=== PATIENT | female | born 1985 | race Caucasian/White ===

== ENCOUNTER 2019-02-06 07:07 | Emergency (ER) | payer OTHER, MEDICAID ==
[~2019-02-06] VITALS: Ht 167.6 cm; Wt 56.8 kg
[2019-02-06 07:20] VITALS: BP 115/81
[2019-02-06] MEDS ORDERED: triamcinolone acetonide 40mg/ml inj IM ONE (08:10)
--- NOTE | 2019-02-06 09:21 | NUR ---
Given im Kenalog; states feels improved with redness and itching decreasing.
== END 2019-02-06 09:25 | disposition home or self-care (01) ==
LOC: ER 07:08
DX: L23.7 Allergic contact dermatitis due to plants, except food (principal)
CPT/HCPCS: 96372; 99283; J3301

== ENCOUNTER 2019-07-19 09:43 | Outpatient (CLI) | payer OTHER, MEDICAID ==
[2019-07-19 10:07] LABS: CLARITY,URINE CLEAR (Clear); COLOR,URINE YELLOW (Yellow); GLUCOSE, URINE NEGATIVE (Neg); KETONES,URINE NEGATIVE (Neg); LEUKOCYTE ESTERASE ,URINE NEGATIVE (Neg); NITRITES, URINE NEGATIVE (Neg); OCCULT BLOOD,URINE NEGATIVE (Neg); PH,URINE 5.5 (4.8-8.0); PROTEIN,URINE NEGATIVE (Neg); UROBILINOGEN,URINE 0.2 E.U/dL (0.2-1.0)
[2019-07-19 10:12] LABS: BASOPHILS # (AUTO) 0.1 X10'3 (0-0.2); BASOPHILS % (AUTO) 1.1 % (0-1); EOSINOPHILS # (AUTO) 0.2 X10'3 (0-0.9); EOSINOPHILS % (AUTO) 2.9 % (0-6); HEMATOCRIT 42.1 % (35.0-45.0); HEMOGLOBIN 14.2 g/dl (12.0-16.0); LYMPHOCYTES # (AUTO) 1.8 X10'3 (1.1-4.8); LYMPHOCYTES % (AUTO) 29.3 % (21-51); MEAN CORPUSCULAR HEMOGLOBIN 30.2 PG (27.0-31.0); MEAN CORPUSCULAR HGB CONC 33.7 g/dL (33.0-36.5); MEAN CORPUSCULAR VOLUME 89.8 FL (78-98); MEAN PLATELET VOLUME 7.3 FL (7.4-10.4); MONOCYTES # (AUTO) 0.4 X10'3 (0-0.9); MONOCYTES % (AUTO) 7.3 % (2-12); NEUTROPHILS # (AUTO) 3.6 X10'3 (1.8-7.7); NEUTROPHILS % (AUTO) 59.4 % (42-75); PLATELET COUNT 316 X10'3 (140-440); RED BLOOD COUNT 4.69 X10'6 (4.20-5.60)
[2019-07-19 10:13] LABS: UA COLLECTION TYPE VOIDED
[2019-07-19 10:31] LABS: ALANINE AMINOTRANSFERASE 20 U/L (12-78); ALBUMIN 4.1 G/DL (3.4-5.0); ALBUMIN/GLOBULIN RATIO 1.3 (1.1-1.5); ALKALINE PHOSPHATASE 37 IU/L (46-116); ANION GAP 9 (8-16); ASPARTATE AMINO TRANSFERASE 9 U/L (10-37); BILIRUBIN,TOTAL 0.5 MG/DL (0.1-1.0); BLOOD UREA NITROGEN 11 MG/DL (7-18); BUN/CREATININE RATIO 10.5 (6.6-38.0); CALCIUM 8.7 MG/DL (8.5-10.1); CHLORIDE 109 MMOL/L (99-107); CHOL/HDL RATIO 2.1 (0.00-4.99); CHOLESTEROL 152 MG/DL (0-200); CREATININE 1.05 MG/DL (0.40-0.90); GLUCOSE 89 MG/DL (70-104); HDL CHOLESTEROL 74 MG/DL (35-60); LDL CHOLESTEROL 62 MG/DL (50-100); POTASSIUM 3.8 MMOL/L (3.5-5.1); SODIUM 142 MMOL/L (135-145); TOTAL CARBON DIOXIDE 23.9 MMOL/L (24-32); TOTAL PROTEIN 7.3 G/DL (6.4-8.2); TRIGLYCERIDES 85 MG/DL (20-135); eGFR 59 ML/MIN
== END 2019-07-19 23:59 | disposition home or self-care (01) ==
LOC: LAB 09:43
PROVIDERS: ATTEND Family Medicine
DX: G43.909 Migraine, unspecified, not intractable, without status migrainosus (principal); Z87.891 Personal history of nicotine dependence
CPT/HCPCS: 36415; 80053; 80061; 81003; 84439; 84443; 85025

== ENCOUNTER 2019-07-22 09:22 | Outpatient (CLI) | payer OTHER, MEDICAID | END 2019-07-22 23:59 | disposition home or self-care (01) | LOC: RAD 09:22 | PROVIDERS: ATTEND Family Medicine | DX: G43.909 Migraine, unspecified, not intractable, without status migrainosus (principal); Z87.891 Personal history of nicotine dependence | CPT/HCPCS: 70544; 70551 ==

== ENCOUNTER → 2019-10-03 | Emergency (ER) | payer MEDICAID, OTHER ==
[~2019-10-03] VITALS: Ht 167.6 cm; Wt 59.1 kg
[~2019-10-03] MED LIST: TRIA15CR61 TOP
[2019-10-03 06:47] VITALS: BP 119/85
== END | disposition home or self-care (01) ==
LOC: ER 06:45
DX: L23.7 Allergic contact dermatitis due to plants, except food (principal)
CPT/HCPCS: 99283

== ENCOUNTER 2020-09-23 07:25 | Outpatient (CLI) | payer BC ==
[2020-09-23 07:51] LABS: CLARITY,URINE CLEAR (Clear); COLOR,URINE YELLOW (Yellow); GLUCOSE, URINE NEGATIVE (Neg); KETONES,URINE TRACE mg/dl (Neg); LEUKOCYTE ESTERASE ,URINE NEGATIVE (Neg); NITRITES, URINE NEGATIVE (Neg); OCCULT BLOOD,URINE NEGATIVE (Neg); PROTEIN,URINE NEGATIVE (Neg); UROBILINOGEN,URINE 0.2 E.U/dL (0.2-1.0)
[2020-09-23 07:57] LABS: UA COLLECTION TYPE CLN CATCH MIDSTREAM
[2020-09-23 07:59] LABS: BASOPHILS % (AUTO) 0.3 % (0-1); EOSINOPHILS # (AUTO) 0.1 X10'3 (0-0.9); EOSINOPHILS % (AUTO) 1.1 % (0-6); HEMATOCRIT 42.2 % (35.0-45.0); HEMOGLOBIN 14.4 g/dl (12.0-16.0); LYMPHOCYTES # (AUTO) 1.7 X10'3 (1.1-4.8); MEAN CORPUSCULAR HEMOGLOBIN 30.7 PG (27.0-31.0); MEAN CORPUSCULAR HGB CONC 34.1 g/dL (33.0-36.5); MEAN CORPUSCULAR VOLUME 89.9 FL (78-98); MEAN PLATELET VOLUME 7.2 FL (7.4-10.4); MONOCYTES # (AUTO) 0.5 X10'3 (0-0.9); NEUTROPHILS # (AUTO) 5.6 X10'3 (1.8-7.7); NEUTROPHILS % (AUTO) 71.6 % (42-75); PLATELET COUNT 301 X10'3 (140-440); RED BLOOD COUNT 4.69 X10'6 (4.20-5.60); RED CELL DISTRIBUTION WIDTH 12.9 % (11.5-14.5); WHITE BLOOD COUNT 7.9 X10'3 (4.5-11.0)
[2020-09-23 10:45] LABS: ALANINE AMINOTRANSFERASE 26 U/L (12-78); ALBUMIN 3.9 G/DL (3.4-5.0); ALBUMIN/GLOBULIN RATIO 1.1 (1.1-1.5); ALKALINE PHOSPHATASE 36 IU/L (46-116); ASPARTATE AMINO TRANSFERASE 14 U/L (10-37); BILIRUBIN,TOTAL 0.5 MG/DL (0.1-1.0); BLOOD UREA NITROGEN 15 MG/DL (7-18); BUN/CREATININE RATIO 16.7 (6.6-38.0); CALCIUM 8.6 MG/DL (8.5-10.1); CHOL/HDL RATIO 1.9 (0.00-4.99); CHOLESTEROL 154 MG/DL (0-200); GLUCOSE 73 MG/DL (70-104); HDL CHOLESTEROL 79 MG/DL (35-60); LDL CHOLESTEROL 58 MG/DL (50-100); TOTAL CARBON DIOXIDE 25.9 MMOL/L (24-32); TOTAL PROTEIN 7.3 G/DL (6.4-8.2); TRIGLYCERIDES 142 MG/DL (20-135); eGFR 70 ML/MIN
[2020-09-23 11:22] LABS: CHLORIDE 104 MMOL/L (99-107); POTASSIUM 3.7 MMOL/L (3.5-5.1)
[2020-09-23 11:23] LABS: ANION GAP 8 (8-16); SODIUM 138 MMOL/L (135-145)
== END 2020-09-23 23:59 | disposition home or self-care (01) ==
LOC: LAB 07:25
PROVIDERS: ATTEND Family Medicine
DX: Z00.00 Encounter for general adult medical examination without abnormal findings (principal)
CPT/HCPCS: 36415; 80053; 80061; 81003; 84439; 84443; 85025

== ENCOUNTER 2020-10-03 14:28 | Outpatient (CLI) | payer BC | END 2020-10-03 23:59 | disposition home or self-care (01) | LOC: LAB 14:28 → EEVIPCON 14:28 → LAB 23:59 | PROVIDERS: ATTEND Family Medicine | DX: G47.00 Insomnia, unspecified (principal); R53.83 Other fatigue; R11.0 Nausea | CPT/HCPCS: 36415; 82306 ==

== ENCOUNTER 2021-12-10 14:11 | Outpatient (CLI) | payer BC | END 2021-12-10 23:59 | disposition home or self-care (01) | LOC: RAD 14:11 | PROVIDERS: ATTEND Family Medicine | DX: S99.922A Unspecified injury of left foot, initial encounter (principal); M79.672 Pain in left foot; X58.XXXA Exposure to other specified factors, initial encounter; Y93.89 Activity, other specified; Y92.89 Other specified places as the place of occurrence of the external cause; Y99.8 Other external cause status | CPT/HCPCS: 73610; 73630 ==

== ENCOUNTER 2023-03-25 14:39 | Outpatient (CLI) | payer BC ==
[2023-03-25 15:07] LABS: BASOPHILS % (AUTO) 0.6 % (0-1); EOSINOPHILS # (AUTO) 0.2 X10'3 (0-0.9); EOSINOPHILS % (AUTO) 2.6 % (0-6); HEMATOCRIT 42.4 % (35.0-45.0); HEMOGLOBIN 14.2 g/dl (12.0-16.0); LYMPHOCYTES # (AUTO) 2.6 X10'3 (1.1-4.8); LYMPHOCYTES % (AUTO) 35.2 % (21-51); MEAN CORPUSCULAR HEMOGLOBIN 29.5 PG (27.0-31.0); MEAN CORPUSCULAR HGB CONC 33.5 g/dL (33.0-36.5); MEAN PLATELET VOLUME 7.4 FL (7.4-10.4); MONOCYTES # (AUTO) 0.5 X10'3 (0-0.9); MONOCYTES % (AUTO) 6.3 % (2-12); NEUTROPHILS # (AUTO) 4.1 X10'3 (1.8-7.7); NEUTROPHILS % (AUTO) 55.3 % (42-75); PLATELET COUNT 344 X10'3 (140-440); RED BLOOD COUNT 4.81 X10'6 (4.20-5.60); WHITE BLOOD COUNT 7.4 X10'3 (4.5-11.0)
[2023-03-25 15:35] LABS: ALANINE AMINOTRANSFERASE 15 U/L (12-78); ALBUMIN 3.9 G/DL (3.4-5.0); ALBUMIN/GLOBULIN RATIO 1.1 (1.1-1.5); ALKALINE PHOSPHATASE 45 IU/L (46-116); ANION GAP 9 (8-16); ASPARTATE AMINO TRANSFERASE 11 U/L (10-37); BILIRUBIN,TOTAL 0.2 MG/DL (0.1-1.0); BLOOD UREA NITROGEN 21 MG/DL (7-18); BUN/CREATININE RATIO 26.6 (10.0-20.0); CHLORIDE 105 MMOL/L (99-107); CHOL/HDL RATIO 2.4 (0.00-4.99); CHOLESTEROL 168 MG/DL (0-200); CREATININE 0.79 MG/DL (0.40-0.90); GLUCOSE 98 MG/DL (70-104); HDL CHOLESTEROL 71 MG/DL (35-60); LDL CHOLESTEROL 65 MG/DL (50-100); POTASSIUM 3.5 MMOL/L (3.5-5.1); SODIUM 140 MMOL/L (135-145); TOTAL PROTEIN 7.4 G/DL (6.4-8.2); TRIGLYCERIDES 87 MG/DL (20-135); eGFR 81 ML/MIN
== END 2023-03-25 23:59 | disposition home or self-care (01) ==
LOC: LAB 14:39
PROVIDERS: ATTEND Physician Assistant
DX: G47.00 Insomnia, unspecified (principal); G43.909 Migraine, unspecified, not intractable, without status migrainosus; R53.83 Other fatigue; Z01.01 Encounter for examination of eyes and vision with abnormal findings
CPT/HCPCS: 36415; 80053; 80061; 84436; 84443; 85025

== ENCOUNTER 2025-04-20 17:40 | Emergency (ER) | payer BC ==
[~2025-04-20] VITALS: Ht 165.1 cm; Wt 67.2 kg
[2025-04-20 17:42] VITALS: BP 151/91; PULSE 96; TEMP 98; O2SAT 98
[2025-04-20] MEDS ORDERED: LIDOcaine 1% W/epiNEPHrine 1:100,000 20ml vial SQ ONE (17:50)
[2025-04-20] MEDS ORDERED: methylPREDNISolone acetate 80mg/ml inj**IM only IM ONE (17:50)
--- NOTE | 2025-04-20 18:13 | RADIOLOGY REPORT ---
EXAM: DI WRIST, COMPLETE (3VW MIN) INDICATION: pain TECHNIQUE: 3 views of the right left wrist COMPARISON: FOOT, COMPLETE (3VW MIN) on DOS: 12/10/21 FINDINGS/IMPRESSION: Question trace cortical irregularity along the dorsal aspect of the triquetrum. Consideration for laura miguel subtle nondisplaced fracture.
--- NOTE | 2025-04-20 18:41 | Physician Documentation ---
History of Present Illness ~ Chief Complaint: Wrist pain Stated Complaint: WRIST PAIN Time Seen by MD: 17:47 Primary Medical Doctor: Roselia KWONG 39-year-old female reports ER with chief complaint of right wrist pain. 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 Denies bruising. Patient states he has had pain for one day. Denies numbness tingling loss of sensation. Patient is also complaining of anxiousness and anxiety as well. No other complaints at this time Medication Reconciliation Allergies: Coded Allergies: No Known Allergies (Unverified , 10/03/19) Past Medical History Past Medical History: No Pertinent History Past Surgical History: noncontributory Alcohol Use: None Drug Use: none Lives In: Home Occupation: employed Physical Exam Vital Signs: Temperature: 98.0, Source: Temporal, Heart Rate: 96, Respiratory Rate: 16, BP: 151/91, Pulse Oximetry: 98, Weight: 67.200 Oxygen Flow Rate: 0 Physical Exam General: Well developed, well nourished, no distress. HEENT: Atraumatic, normal conjunctiva, moist mucous membranes. Neck: Full range of motion, supple. Respiratory: Lungs clear, no respiratory distress. Chest: No accessory muscle use, nontender. Cardiovascular: Regular rate and rhythm. Gastrointestinal: Soft, nontender, nondistended. Bowel sounds present. Extremities: Right wrist exam: Negative for permanents gross deformities. Negative for overlying erythema, ecchymosis signs of infection. Positive for tenderness over the radial styloid. Positive Libra's. Negative tenderness over scaphoid or anatomical snuffbox. Neurovascular intact distally Back: No midline tenderness, no CVA tenderness. Neurologic: Oriented x4. Distal gross motor and sensory intact all four extremities. Moves all 4 extremities spontaneously. Psychiatric: Normal mood and affect. Skin: Normal color, warm and dry. No edema, no ecchymosis Procedures Procedures Using 2 mL Depo-Medrol and 1% lidocaine with epinephrine, a 27 gauge needle was introduced to the radial styloid and 4 mL solution was given. Aseptic take it with a used. Patient tolerated well. No complications Progress Results/Orders Results/Orders Orders - JAKOB FAN Wrist, Complete (3vw Min) (04/20/25 17:47) Completed Orders - JAKOB FAN Methylprednisolone Acetate*Im* (Depo-Med (04/20/25 17:50) Lidocaine 1% W/Epi 1:100,000 (Xylocaine (04/20/25 17:50) Wrist, Complete (3vw Min) (04/20/25 17:47) Vital Signs 04/20/25 17:42 Temp 98.0 Pulse 96 Resp 16 B/P (MAP) 151/91 Pulse Ox 98 O2 Flow Rate 0 Medical Decision Making Additional info obtained from: old records Findings After detailed discussion jet medical decision-making, diagnostic imaging results were discussed with patient. At this time patient did have an x-ray which is concerning for possible triquetrum fracture, however based on physical exam I do not believe that this is a case and I did review the x-rays myself and I do not see any cortical irregularity along the triquetrum he believe this is an over-read. I re-examined the patient and her pain is consistent with de Quervain's tenosynovitis. Injection was given and placed patient to a thumb spica Velcro splint. Patient advised follow up with her primary care. Patient advised to wear the some thumb spica for two weeks discontinue. ER precautions were given. Patient is stable upon discharge. Patient will be given medication for pain as well. Patient agrees to outpatient treatment plan. General Diff Dx:Considerations: Include: Other (Fracture, contusion, strain, de Quervain's tenosynovitis) Departure Disposition: HOME / SELF CARE / HOMELESS Impression: Primary Impression: Anxiousness Additional Impression: De Quervain's tenosynovitis Condition: Stable Discharge Instructions: Wrist Pain, Adult Referrals: NO PRIMARY CARE PROVIDER (PCP) Prescriptions Oxycodone Hcl IR* (Oxycodone IR*) 5 Mg Tablet 1 TAB PO QID PRN PRN for pain for 5 Days, #30 TAB Prov: JAKOB FAN 04/20/25 Alprazolam (Xanax) 2 Mg Tablet 1 TAB PO Q12H PRN PRN for anxiety for 30 Days, #60 TAB 0 Refills Prov: JAKOB FAN 04/20/25 Education Educated: Patient Educated regarding: diagnosis, treatment Signature Scribe Signature: none used Attestation: Scribed for Jakob Fan by Jakob AMOS . 04/20/25 18:48 JAKOB FAN April 20, 2025 18:40
[2025-04-20] MEDS ORDERED: OXYC-658 PO (18:47)
[2025-04-20] MEDS ORDERED: ALPR2TAB2 PO (18:47)
[2025-04-20 18:56] VITALS: RESP 16
[2025-04-20] MEDS: ketorolac trometh 30MG/ML vial 30 MG/ML VIAL IM ONE (18:56)
[2025-04-20] MEDS: dexamethasone sod phosphate 10mg/ml inj IM STA (19:05)
== END 2025-04-20 19:13 | disposition home or self-care (01) ==
LOC: ER 17:41
DX: F41.9 Anxiety disorder, unspecified (principal); M65.4 Radial styloid tenosynovitis [de Quervain]
CPT/HCPCS: 29125; 73110; 96372; 99284; J1100; J1885

== ENCOUNTER 2025-08-07 13:07 | Emergency (ER) | payer BC ==
[~2025-08-07] VITALS: Ht 165.1 cm; Wt 61.5 kg
[~2025-08-07 13:07] MED LIST changes: +ALPR2TAB2 PO; -TRIA15CR61 TOP
[2025-08-07 13:10] VITALS: BP 124/61; PULSE 72; TEMP 98.2; O2SAT 99
--- NOTE | 2025-08-07 13:30 | Physician Documentation ---
History of Present Illness ~ Chief Complaint: Hip pain Stated Complaint: HIP PAIN Time Seen by MD: 13:24 Primary Medical Doctor: EVELIO HPI 40-year-old female presents to the ED with a complaint of right hip pain after line dancing few days ago denies any trauma reports pain with the ambulation. deneisany numbness or tingling Day of Onset: Aug 07, 2025 Medication Reconciliation Allergies: Coded Allergies: No Known Allergies (Unverified , 08/07/25) Scheduled PRN Alprazolam (Xanax), 1 TAB PO Q12H PRN PRN for anxiety Past Medical History Past Medical History: No Pertinent History Past Surgical History: noncontributory Alcohol Use: None Drug Use: none Lives In: Home Occupation: employed Review of Systems All Other Systems at this time: Reviewed and Negative ROS As stated above in the HPI, otherwise all systems are reviewed and negative. Physical Exam Vital Signs: Temperature: 98.2, Source: Temporal, Heart Rate: 72, Respiratory Rate: 16, BP: 124/61, Pulse Oximetry: 99, Weight: 61.500 Oxygen Flow Rate: 0 Physical Exam General: Alert, no apparent distress. Cardiovascular: Regular rate and rhythm, no murmurs. Extremities: Normal range of motion, no deformity. Neurologic: Oriented x4. Psychiatric: Normal mood and affect. Skin: Normal color, warm and dry. No edema, no ecchymosis. Progress Results/Orders Results/Orders Completed Orders - HARDY PETERS NP Ketorolac Trometh 30mg/Ml Vial (Toradol (08/07/25 13:25) Medications Received in ER Medications (Trade) Dose Ordered Sig/Lesley Route PRN Reason Start Time Stop Time Status Last Admin Dose Admin (Toradol inj. 30mg/ml) 30 mg ONCE ONCE IM 08/07/25 13:25 08/07/25 13:26 DC 08/07/25 13:32 30 MG Vital Signs 08/07/25 08/07/25 13:10 13:32 Temp 98.2 Pulse 72 Resp 16 16 B/P (MAP) 124/61 Pulse Ox 99 O2 Flow Rate 0 Medical Decision Making Findings treated for pain and inflammation where he had a Toradol and discharged for outpatient evaluation Differential Dx:Considerations: Include: Avascular necrosis, Arthritis, Arthritis-Rheumatoid, Arthritis-Septic, Bursitis, Contusion, Dislocation, DJD, Fracture-femur, Fracture-hip, Fracture-open, Fracture-pelvis, Gout, Hernia, [id number]., Neurovascular injury, Slip capital femoral epip, Sprain, Transient synovitis, Other Departure Disposition: 01 HOME / SELF CARE / HOMELESS Impression: Primary Impression: Hip pain Discharge Instructions: Hip Pain Referrals: NO PRIMARY CARE PROVIDER (PCP) Education Educated: Patient Educated regarding: diagnosis Signature Scribe Signature: t Attestation: Scribed for Hardy Peters Covered Button Maker by Hardy Forrest NP . 08/07/25 17:42 HARDY PETERS NP Aug 07, 2025 13:30
[2025-08-07 13:32] VITALS: RESP 16
[2025-08-07] MEDS: ketorolac trometh 30MG/ML vial 30 MG/ML VIAL IM ONE (13:32)
== END 2025-08-07 13:45 | disposition home or self-care (01) ==
LOC: ER 13:08
DX: M25.551 Pain in right hip (principal)
CPT/HCPCS: 96372; 99283; J1885

== ENCOUNTER 2025-11-20 07:21 | Outpatient (CLI) | payer BC ==
[2025-11-20 07:54] LABS: MEAN PLATELET VOLUME 7.5 FL (7.4-10.4); RED CELL DISTRIBUTION WIDTH 13.2 % (11.5-14.5)
[2025-11-20 08:14] LABS: CHOL/HDL RATIO 2.2 (0.00-4.99); CREATININE 0.86 MG/DL (0.40-0.90); LDL CHOLESTEROL 65 MG/DL (50-100); TOTAL CARBON DIOXIDE 27.1 MMOL/L (24-32); eGFR 72 ML/MIN
[2025-11-21 15:37] LABS: ESTRADIOL <5.0 pg/mL (.); FSH, SERUM 6.3 mIU/mL (.); LUTEINIZING HORMONE 4.1 mIU/mL (.); PROGESTERONE 0.1 ng/mL (.); TESTOSTERONE, SERUM <3 ng/dL (4-50)
== END 2025-11-20 23:59 | disposition home or self-care (01) ==
LOC: LAB 07:21
PROVIDERS: ATTEND Nurse Practitioner
DX: R53.83 Other fatigue (principal); R11.0 Nausea; G47.00 Insomnia, unspecified; E78.2 Mixed hyperlipidemia; E34.9 Endocrine disorder, unspecified
CPT/HCPCS: 36415; 80053; 80061; 82306; 82670; 83001; 83002; 84144; 84270; 84402; 84403; 84439; 84443; 85025